=== PATIENT | female | born 1985 | race Caucasian/White ===

== ENCOUNTER → 2021-06-05 | Outpatient (CLI) | payer OTHER | LOC: M WHC 14:39 | PROVIDERS: ATTEND Internal Medicine Hematology & Oncology | DX: C50.912 Malignant neoplasm of unspecified site of left female breast (principal) ==

== ENCOUNTER → 2021-07-31 | Outpatient (CLI) | payer OTHER | LOC: M WHC 12:42 | PROVIDERS: ATTEND Nurse Practitioner Family | DX: M79.661 Pain in right lower leg (principal) ==

== ENCOUNTER → 2021-10-03 | Outpatient (CLI) | payer OTHER ==
[~2021-10-03] MED LIST: ATIV1TAB10 PO; ONDA4TAB6 PO; PROC10TA5 PO; TAMO20TA8 PO; VENL37TA PO
== END ==
LOC: M ONCR 14:28
PROVIDERS: ATTEND General Practice
DX: C50.112 Malignant neoplasm of central portion of left female breast (principal); R91.1 Solitary pulmonary nodule; Z15.01 Genetic susceptibility to malignant neoplasm of breast; Z79.810 Long term (current) use of selective estrogen receptor modulators (SERMs); Z79.899 Other long term (current) drug therapy; Z80.0 Family history of malignant neoplasm of digestive organs; Z80.1 Family history of malignant neoplasm of trachea, bronchus and lung; Z80.3 Family history of malignant neoplasm of breast; Z90.13 Acquired absence of bilateral breasts and nipples; Z92.21 Personal history of antineoplastic chemotherapy

== ENCOUNTER 2021-10-15 09:09 | Outpatient (RCR) | payer OTHER | END 2021-10-17 | LOC: M ONCR 09:09 | PROVIDERS: ATTEND General Practice | DX: C50.812 Malignant neoplasm of overlapping sites of left female breast (principal); R91.1 Solitary pulmonary nodule; Z79.899 Other long term (current) drug therapy; Z90.13 Acquired absence of bilateral breasts and nipples; Z80.3 Family history of malignant neoplasm of breast ==

== ENCOUNTER 2021-10-18 11:02 | Outpatient (RCR) | payer OTHER | END 2021-11-17 | LOC: M ONCR 11:02 | PROVIDERS: ATTEND General Practice | DX: C50.812 Malignant neoplasm of overlapping sites of left female breast (principal) ==

== ENCOUNTER → 2021-12-18 | Outpatient (RCR) | payer OTHER | LOC: M ONCR 11-26 07:15 | PROVIDERS: ATTEND General Practice | DX: C50.812 Malignant neoplasm of overlapping sites of left female breast (principal) ==

== ENCOUNTER → 2022-01-17 | Outpatient (RCR) | payer OTHER | LOC: M ONCR 12-19 08:44 | PROVIDERS: ATTEND General Practice | DX: C50.812 Malignant neoplasm of overlapping sites of left female breast (principal) ==

== ENCOUNTER 2022-01-23 08:45 | Outpatient (RCR) | payer OTHER | END 2022-02-17 | LOC: M ONCR 08:45 | PROVIDERS: ATTEND General Practice | DX: C50.812 Malignant neoplasm of overlapping sites of left female breast (principal) ==